=== PATIENT | female | born 1990 | race Caucasian/White ===

== ENCOUNTER 2016-11-06 20:14 | Emergency (ER) | payer OTHER ==
[2016-11-06 20:21] VITALS: BP 127/72; PULSE 62; RESP 16; TEMP 97.6
--- NOTE | 2016-11-06 20:41 | ED ---
General Adult HPI - General Chief complaint: Extremity Injury, Lower Stated complaint: foot pain Time Seen by Provider: 11/06/16 20:29 Source: patient, RN notes reviewed Mode of arrival: ambulatory Limitations: no limitations - History of Present Illness Initial comments: This is a 26-year-old female presents with right foot pain after running yesterday. Patient states by the end of last night she noticed some pain in the lateral aspect of the right foot with mild erythema. Patient states she is a history of hairline fracture of the foot and was concerned. Patient denies rolling her ankle. Patient states she went to work today but went home early because it hurts to walk on the right foot. Patient doesn't have pain when she is resting the foot. Patient states it only hurts when she bears weight on the foot. Patient Denies any numbness/weakness or tingling. Patient denies any chance of being .Patient denies any recent fever, chills, shortness breath, chest pain, abdominal pain, nausea/vomiting/diarrhea, back pain, hematuria, headache, or visual changes, or any other complaints. - Related Data Home Medications Medication Instructions Recorded Confirmed Acetaminophen Tab [Tylenol] 1,000 mg PO Q6H PRN 05/08/16 11/06/16 Aspirin/Acetaminophen/Caffeine 2 tab PO BID PRN 05/08/16 11/06/16 [Excedrin Migraine Caplet] Previous Rx's Medication Instructions Recorded Potassium Chloride ER [K-Dur 20] 20 meq PO DAILY #7 tab 05/09/16 Allergies Allergy/AdvReac Type Severity Reaction Status Date / Time No Known Allergies Allergy Verified 11/06/16 20:20 Review of Systems ROS Statement: Those systems with pertinent positive or pertinent negative responses have been documented in the HPI. ROS Other: All systems not noted in ROS Statement are negative. Past Medical History Past Medical History: No Reported History Additional Past Medical History / Comment(s): migraines History of Any Multi-Drug Resistant Organisms: None Reported Past Surgical History: No Surgical Hx Reported Past Anesthesia/Blood Transfusion Reactions: No Reported Reaction Past Psychological History: No Psychological Hx Reported Smoking Status: Former smoker Past Alcohol Use History: None Reported, Rare Additional Past Alcohol Use History / Comment(s): Quit 09/2013 Past Drug Use History: None Reported General Exam - General Exam Comments Initial Comments: General: The patient is awake and alert, in no distress, and does not appear acutely ill. Neck: The neck is supple, there is no tenderness or JVD. Cardiovascular: There is a regular rate and rhythm. No murmur, rub or gallop is appreciated. Respiratory: Lungs are clear to auscultation, respirations are non-labored, breath sounds are equal. No wheezes, stridor, rales, or rhonchi. Musculoskeletal: There is tenderness to palpation over the lateral aspect of the right foot with some mild erythema to this area as well. There is no swelling or ecchymosis. Full range of motion, strength 5/5 and Sensation intact. Posterior tibial and dorsalis pedis pulses are 2+ bilaterally. Capillary refill is normal at less than 2 seconds. Neurological: A&O x 3. CN II-XII intact, There are no obvious motor or sensory deficits. Coordination appears grossly intact. Speech is normal. Skin: Skin is warm and dry and no rashes or lesions are noted. Psychiatric: Normal mood and affect. Limitations: no limitations Course Vital Signs 11/06/16 20:15 Temperature 97.6 F Pulse Rate 62 Respiratory 16 Rate Blood Pressure 127/72 O2 Sat by Pulse 99 Oximetry Medical Decision Making - Medical Decision Making This is a 26 review the patient's right foot pain. On physical exam There is tenderness to palpation over the lateral aspect of the right foot with some mild erythema to this area as well. There is no swelling or ecchymosis. Full range of motion, strength 5/5 and Sensation intact. Posterior tibial and dorsalis pedis pulses are 2+ bilaterally. Capillary refill is normal at less than 2 seconds. An x-ray of the right foot was done and reviewed showing:Negative right foot exam. Dr. Eller.I discussed results with patient. I discussed the possibility for stress fracture. I discussed that patient may need a repeat x- ray in 7-10 days if pain is persisting. I discussed in the meantime rest, ice, elevate and use Ruddy wrap for compression mother walking. I discussed weightbearing as tolerated but to avoid high impact activity such as running. I discussed supportive shoes. Discussed return parameters. Discussed that patient should follow up with PCP in one to 2 days or return to the [facility] for any worsening symptoms or for any further concerns. Patient was receptive to this plan and patient will be discharged home. I discussed this case with attending physician Dr. Ruiz who agrees the plan as stated above. Disposition Clinical Impression: Right foot pain Disposition: HOME SELF-CARE Condition: Good Instructions: Foot Sprain (ED) Additional Instructions: Rest, ice, elevate and use Ruddy wrap for compression. Please use Tylenol and/or Motrin as needed for any pain. Weightbearing as tolerated. Please avoid high impact activities such as running until pain subsides. If pain persists past 7- 10 days you may need a repeat x-ray to rule out occult fracture. Please follow- up with family doctor in the next 2 days of symptoms have not improved. Please return to emergency room if the symptoms increase or worsen or for any other concerns. Time of Disposition: 21:10
--- NOTE | 2016-11-06 20:58 | XR ---
EXAMINATION TYPE: XR foot complete RT DATE OF EXAM: 11/06/2016 8:54 PM COMPARISON: NONE HISTORY: Foot pain TECHNIQUE: 3 views FINDINGS: I see no fracture nor dislocation. Joint spaces are normal. There are no erosions. IMPRESSION: Negative right foot exam.
== END 2016-11-06 21:21 | disposition home or self-care (01) ==
LOC: EC 20:14
DX: M79.671 Pain in right foot (principal); Z87.891 Personal history of nicotine dependence; Y93.02 Activity, running
CPT/HCPCS: 99283

== ENCOUNTER → 2017-12-26 | Outpatient (CLI) | payer OTHER ==
[2017-12-26 14:35] LABS: Basophils % (A) 1 %; Eosinophils # (A) 0.1 k/uL (0-0.7); Eosinophils % (A) 2 %; HCT 39.2 % (34.0-46.0); HGB 13.3 gm/dL (11.4-16.0); Lymphocytes # (A) 2.3 k/uL (1.0-4.8); Lymphocytes % (A) 30 %; MCH 29.4 pg (25.0-35.0); MCHC 33.9 g/dL (31.0-37.0); MCV 86.6 fL (80.0-100.0); Mean Platelet Volume 8.1; Monocytes # (A) 0.3 k/uL (0-1.0); Monocytes % (A) 3 %; Neutrophils # (A) 4.9 k/uL (1.3-7.7); Neutrophils % (A) 63 %; Platelet Count 261 k/uL (150-450); RBC 4.53 m/uL (3.80-5.40); RDW 12.3 % (11.5-15.5); WBC 7.7 k/uL (3.8-10.6)
== END | disposition home or self-care (01) ==
LOC: LABPAT 14:08
PROVIDERS: ATTEND Obstetrics & Gynecology
DX: Z01.812 Encounter for preprocedural laboratory examination (principal)
CPT/HCPCS: 36415; 85025

== ENCOUNTER 2018-01-03 06:50 | Day surgery (SDC) | payer OTHER ==
[2017-12-31 15:07] VITALS: BMI 25.6
--- NOTE | 2018-01-01 16:28 | P.HPOB ---
History of Present Illness H&P Date: 01/01/18 Chief Complaint: FAmily Planning 27 year old presents for laparoscopic tubal ligation. Review of Systems All systems: negative Constitutional: Denies chills, Denies fever Eyes: denies blurred vision, denies pain Ears, nose, mouth and throat: Denies headache, Denies sore throat Cardiovascular: Denies chest pain, Denies shortness of breath Respiratory: Denies cough Gastrointestinal: Denies abdominal pain, Denies diarrhea, Denies nausea, Denies vomiting Genitourinary: Denies dysuria, Denies hematuria Musculoskeletal: Denies myalgias Integumentary: Denies pruritus, Denies rash Neurological: Denies numbness, Denies weakness Psychiatric: Denies anxiety, Denies depression Endocrine: Denies fatigue, Denies weight change Past Medical History Past Medical History: No Reported History Additional Past Medical History / Comment(s): Migraines. JUST FINISHED PO AB D/ T TOOTH PULLED. History of Any Multi-Drug Resistant Organisms: None Reported Past Surgical History: No Surgical Hx Reported Additional Past Surgical History / Comment(s): WISDOM TEETH Past Anesthesia/Blood Transfusion Reactions: No Reported Reaction Past Psychological History: No Psychological Hx Reported Smoking Status: Current some day smoker - Past Family History Mother Family Medical History: No Reported History Medications and Allergies Home Medications Medication Instructions Recorded Confirmed Type Aspirin/Acetaminophen/Caffeine 2 tab PO BID PRN 05/08/16 12/31/17 History [Excedrin Migraine Caplet] Allergies Allergy/AdvReac Type Severity Reaction Status Date / Time No Known Allergies Allergy Verified 12/31/17 14:46 Exam Osteopathic Statement: *. No significant issues noted on an osteopathic structural exam other than those noted in the History and Physical/Consult. HEart: RRR Lungs: CTAB Abdomen: soft, nontender Extremeties: neg aneudy's Assessment and Plan (1) Family planning Status: Acute Code(s): Z30.09 - ENCOUNTER FOR OTH GENERAL CNSL AND ADVICE ON CONTRACEPTION SNOMED Code(s): 494538592 Plan: 1. laparoscopic tubal ligation
[~2018-01-03 06:50] MED LIST: DEXAMETHASONE SOD PHOSPHATE 10 MG/ML 1 ML VIAL IV ONE; LIDOCAINE 1% 20 ML VIAL (10MG/ML) FOR IV START INTRADERMA PRN; MIDAZOLAM 2 MG/2 ML VIAL IV PRN; ONDANSETRON ODT 4 MG TAB PO ONE; Pre Op ABX Message 1 EACH MISC MISCELLANE ONE; SCOPOLAMINE 1.5MG/72HR PATCH TRANSDERM ONE
[2018-01-03 07:32] VITALS: TEMP 97.8
[2018-01-03] MEDS: LACTATED RINGERS 1,000 ML IV SCH ×2 (07:35→09:48)
[2018-01-03] MEDS ORDERED: PROPOFOL 10 MG/ML 20 ML VIAL IV ONE (08:07)
[2018-01-03] MEDS ORDERED: ROCURONIUM BROMIDE 10 MG/ML 10 ML VIAL IV ONE (08:07)
[2018-01-03] MEDS ORDERED: SUCCINYLCHOLINE CHLORIDE 100 MG/5 ML SYR IV ONE (08:07)
[2018-01-03] MEDS ORDERED: KETOROLAC 30 MG/ML 1 ML VIAL ONE (08:07)
[2018-01-03] MEDS ORDERED: fentaNYL (PF) 50 MCG/ML 2 ML AMP ONE (08:07)
[2018-01-03] MEDS ORDERED: LIDOCAINE 1% INJ 10MG/ML (20 ML MDV) ONE (08:07)
[2018-01-03] MEDS ORDERED: GLYCOPYRROLATE 0.2 MG/ML 2 ML VIAL ONE (08:07)
[2018-01-03] MEDS ORDERED: MIDAZOLAM 2 MG/2 ML VIAL ONE (08:07)
[2018-01-03] MEDS ORDERED: NEOSTIGMINE 1 MG/ML 10 ML VIAL ONE (08:07)
[2018-01-03] MEDS ORDERED: BUPIVACAINE (PF) 0.25% 30 ML VIAL SQ ONE ×2 (08:28)
--- NOTE | 2018-01-03 08:48 | P.OP ---
Date of Procedure: 01/03/18 Preoperative Diagnosis: 1. Family Planning Postoperative Diagnosis: 1. Family Planning Procedure(s) Performed: Laparoscopic tubal ligation Anesthesia: CLAUDETTE Surgeon: Tiara Wren Estimated Blood Loss (ml): 5 IV fluids (ml): 700 Urine output (ml): 20 Pathology: none sent Condition: stable Disposition: floor Operative Findings: Normal uterus, tubes, ovaries Description of Procedure: Patient was taken to the operating room where general anesthesia was obtained without difficulty. She was prepped and draped in normal sterile fashion in the dorsal lithotomy position, legs placed in the Matt stirrups. Bladder drained of all urine. Wedron speculum placed in the vagina and the anterior lip the cervix was grasped with single-tooth tenaculum. The uterus is sounded to 8 cm and the kroner manipulator was placed. Attention was then turned to the abdomen and gloves were changed. A 10 mm infraumbilical incision was made the scalpel and 10 mm optical trocar was placed under direct visualization. A 5 mm suprapubic Incision was made and a 5 mm optical trocar was placed under direct visualization. Survey of the pelvis revealed normal uterus tubes and ovaries. The left fallopian tube was grasped with a Kleppinger and fulgurated 2 -3 cm on this side in the ampullar portion. The right fallopian tube was grasped with a Kleppinger and fulgurated 2-3 cm in the ampullar portion. All instruments were then removed from the abdomen and vagina. The 10 mm infraumbilical incision was closed with 0 Vicryl and the fascial layer and then 4-0 Vicryl in a subcuticular fashion. The 5 mm incision was closed with 4-0 Vicryl in a subcuticular fashion. Patient tolerated procedure well, sponge and instrument counts correct 2 and she was taken to recovery room in stable condition.
[2018-01-03] MEDS: MORPHINE SULFATE 4 MG/0.8 ML SYRINGE (INJ) IV PRN ×2 (09:17→09:26)
[2018-01-03 09:19] VITALS: RESP 16
[2018-01-03 10:14] VITALS: BP 126/83; PULSE 67
[2018-01-03] MEDS ORDERED: Acetaminophen-Codeine 300-30mg TAB PO ONE (10:16)
== END 2018-01-03 10:41 | disposition home or self-care (01) ==
LOC: OR 06:50
PROVIDERS: ATTEND Obstetrics & Gynecology
DX: Z30.2 Encounter for sterilization (principal); F17.200 Nicotine dependence, unspecified, uncomplicated
CPT/HCPCS: 81025; 58670; J2250; J1100; J2710; J2001; J3010; J1885; J0330; J2704; J2270

== ENCOUNTER 2023-10-30 09:43 | Emergency (ER) | payer OTHER ==
[2023-10-30] MEDS: KETOROLAC 15 MG/ML 1 ML VIAL IVP STA (10:19)
[2023-10-30] MEDS: SODIUM CHLORIDE 0.9% 1,000 ML IV STA (10:19)
--- NOTE | 2023-10-30 10:20 | ED ---
Skin/Abscess/FB HPI - General Chief complaint: Skin/Abscess/Foreign Body Stated complaint: Mass in breast Time Seen by Provider: 10/30/23 09:59 Source: patient, RN notes reviewed Mode of arrival: ambulatory Limitations: no limitations - History of Present Illness Initial comments: This is a 33-year-old female who presents to the emergency department for concerns of a left breast mass. States that she noted a lump in the center of her left breast about a month ago. She had a mammogram and ultrasound that were negative. However, states that this continues to be enlarging. She has also noticed increasing pain and redness. She went to urgent care 4 days ago and was started on doxycycline. However, feels that she is continuing to get worse. Denies any fevers or chills. States that she would like blood work and a repeat ultrasound. - Related Data Home Medications Medication Instructions Recorded Confirmed Aspirin/Acetaminophen/Caffeine 2 tab PO BID PRN 05/08/16 12/31/17 [Excedrin Migraine Caplet] Previous Rx's Medication Instructions Recorded Acetaminophen-Codeine 300-30mg 2 tab PO Q6H PRN #30 tablet 01/03/18 [Tylenol #3] Ibuprofen [Motrin] 600 mg PO Q6HR PRN #30 tab 01/03/18 Allergies Allergy/AdvReac Type Severity Reaction Status Date / Time No Known Allergies Allergy Verified 10/30/23 09:47 Review of Systems ROS Statement: Those systems with pertinent positive or pertinent negative responses have been documented in the HPI. ROS Other: All systems not noted in ROS Statement are negative. Past Medical History Past Medical History: No Reported History Additional Past Medical History / Comment(s): migraines History of Any Multi-Drug Resistant Organisms: None Reported Past Surgical History: No Surgical Hx Reported Past Anesthesia/Blood Transfusion Reactions: No Reported Reaction Past Psychological History: No Psychological Hx Reported Smoking Status: Never smoker Past Alcohol Use History: None Reported, Rare Past Drug Use History: None Reported General Exam Limitations: no limitations General appearance: alert, in no apparent distress Head exam: Present: atraumatic, normocephalic, normal inspection Respiratory exam: Present: normal lung sounds bilaterally. Absent: respiratory distress, wheezes, rales, rhonchi, stridor Cardiovascular Exam: Present: regular rate, normal rhythm, normal heart sounds. Absent: systolic murmur, diastolic murmur, rubs, gallop, clicks Neurological exam: Present: alert, oriented X3, CN II-XII intact Psychiatric exam: Present: normal affect Skin exam: Present: other (Firm tender lump posteior to the nipple in the left breast.) Course Vital Signs 10/30/23 10/30/23 09:44 13:10 Temperature 98.2 F 98.3 F Pulse Rate 75 80 Respiratory 18 12 Rate Blood Pressure 112/75 137/88 O2 Sat by Pulse 99 100 Oximetry Medical Decision Making - Medical Decision Making This is a 33 year old female who presents to the emergency department for concerns of a breast lump. Was pt. sent in by a medical professional or institution? @ -No Did you speak to anyone other than the patient for history? @ -No Did you review nursing and triage notes? @ -Yes, and I agree, it is accurate with regards to the patient's symptoms. Were old charts reviewed? @ -No Differential Diagnosis? @ -Differential Breast Lump: Abscess, cancer, mastitis, fibroadenoma, this is not meant to be an all- inclusive list. EKG interpreted by me (3pts min.)? @ -Not obtained X-rays interpreted by me (1pt min.)? @ -Not obtained CT interpreted by me (1pt min.)? @ -Not obtained U/S interpreted by me (1pt. min.)? @ -US of the breast obtained. My interpretation identifies a masslike area behind the nipple. What testing was considered but not performed? (CT, X-rays, U/S, labs)? Why? @ -None What meds were considered but not given? Why? @ -None Did you discuss the management of the patient with other professionals? @ -No Did you reconcile home meds? @ -No Was smoking cessation discussed for >3mins.? @ -No Was critical care preformed (if so, how long)? @ -No Were there social determinants of health that impacted care today? How? (Homelessness, low income, unemployed, alcoholism, drug addiction, transportation, low edu. Level, literacy, decrease access to med. care, retirement, rehab)? @ -No Was there de-escalation of care discussed even if they declined? (Discuss DNR or withdrawal of care, Hospice)? @ -No What co-morbidities impacted this encounter? (DM, HTN, Smoking, COPD, CAD, Cancer, CVA, Hep., AIDS, mental health diagnosis, sleep apnea, morbid obesity)? @ -None Was patient admitted / discharged? @ -Discharged. Lab work obtained and found to be unremarkable, including no evidence of leukocytosis or elevated inflammatory markers. US of the left breast obtained. This demonstrates a heterogeneous hypoechoic masslike area behind the nipple. This contains internal and surrounding vascularity. Radiology reviewed the imaging that the patient had done last month, including an ultrasound and mammogram, and this was not evident on that imaging. Radiology advised a new mammogram and possible biopsy. Findings reviewed with the patient. She was given information to follow-up with Dr. Ely for further evaluation. However, I also advised she call her PCP and request a mammogram be ordered as soon as possible and ask if an official referral needs to be made to Dr. Ely, as the pathology of this masslike area on [facility] is not clear and further management should not be delayed. Patient given the option of whether or not to continue with the doxycycline, however I did not see a need to begin a new or alternative antibiotic at this time. Undiagnosed new problem with uncertain prognosis? @ -None Drug Therapy requiring intensive monitoring for toxicity (Heparin, Nitro, Insulin, Cardizem)? @ -None Were any procedures done? @ -None Diagnosis/symptom? @ -Breast mass Acute, or Chronic, or Acute on Chronic? @ -Acute Uncomplicated (without systemic symptoms) or Complicated (systemic symptoms)? @ -Uncomplicated Side effects of treatment? @ -None Exacerbation, Progression, or Severe Exacerbation] @ -Not applicable Poses a threat to life or bodily function? @ -This will depend on the cause Return precautions reviewed in depth, the patient is instructed to return to the emergency department with any new, worsening, or concerning symptoms. Patient verbalized understanding. This case was discussed in detail with the attending ED physician, Dr. Kate. Presentation, findings, and treatment plan discussed in detail as well. - Lab Data Result diagrams: 10/30/23 10:22 10/30/23 10:22 Lab Results 10/30/23 10/30/23 10/30/23 Range/Units 10:22 10:22 10:22 WBC 7.1 (3.8-10.6) k/uL RBC 4.47 (3.80-5.40) m/uL Hgb 13.2 (11.4-16.0) gm/dL Hct 38.5 (34.0-46.0) % MCV 86.0 (80.0-100.0) fL MCH 29.6 (25.0-35.0) pg MCHC 34.4 (31.0-37.0) g/dL RDW 12.8 (11.5-15.5) % Plt Count 235 (150-450) k/uL MPV 9.1 Neutrophils % 62 % Lymphocytes % 30 % Monocytes % 5 % Eosinophils % 1 % Basophils % 0 % Neutrophils # 4.4 (1.3-7.7) k/uL Lymphocytes # 2.1 (1.0-4.8) k/uL Monocytes # 0.3 (0-1.0) k/uL Eosinophils # 0.1 (0-0.7) k/uL Basophils # 0.0 (0-0.2) k/uL ESR 13 (0-20) mm/Hr Sodium 142 (137-145) mmol/L Potassium 4.2 (3.5-5.1) mmol/L Chloride 109 H (98-107) mmol/L Carbon Dioxide 22 (22-30) mmol/L Anion Gap 11 mmol/L BUN 15 (7-17) mg/dL Creatinine 0.62 (0.52-1.04) mg/dL Est GFR (CKD-EPI)AfAm >90 (>60 ml/min/1.73 sqM) Est GFR (CKD-EPI)NonAf >90 (>60 ml/min/1.73 sqM) Glucose 80 (74-99) mg/dL Plasma Lactic Acid Mukund 1.3 (0.7-2.0) mmol/L Calcium 9.5 (8.4-10.2) mg/dL Total Bilirubin 0.6 (0.2-1.3) mg/dL AST 30 (14-36) U/L ALT 26 (4-34) U/L Alkaline Phosphatase 73 (38-126) U/L C-Reactive Protein 0.6 (<1.0) mg/dL Total Protein 7.0 (6.3-8.2) g/dL Albumin 4.4 (3.5-5.0) g/dL - Radiology Data Radiology results: report reviewed, image reviewed Disposition Clinical Impression: Breast lump in female Disposition: HOME SELF-CARE Additional Instructions: Return to the emergency department with any new, worsening, or concerning symptoms. Alternate with Ibuprofen and Tylenol as needed for pain relief. Call your primary care providers's office today. Let them know that you were seen in the emergency department and had an abnormal US of your breast and you need a mammogram, and see if they will order that for you. Contact the breast specialist listed below for a follow up appointment. See if they will see you as an ER follow up patient. If not, contact your doctor's office regarding this referral as well. Is patient prescribed a controlled substance at d/c from ED?: No Referrals: Jamila Diaz MD [Primary Care Provider] - 1-2 days Anastacia Ely MD [STAFF PHYSICIAN] - 1-2 days Time of Disposition: 13:02
[2023-10-30 10:39] LABS: Basophils % (A) 0 %; Eosinophils # (A) 0.1 k/uL (0-0.7); Eosinophils % (A) 1 %; HCT 38.5 % (34.0-46.0); HGB 13.2 gm/dL (11.4-16.0); Lymphocytes # (A) 2.1 k/uL (1.0-4.8); Lymphocytes % (A) 30 %; MCH 29.6 pg (25.0-35.0); MCHC 34.4 g/dL (31.0-37.0); Mean Platelet Volume 9.1; Monocytes # (A) 0.3 k/uL (0-1.0); Monocytes % (A) 5 %; Neutrophils # (A) 4.4 k/uL (1.3-7.7); Neutrophils % (A) 62 %; Platelet Count 235 k/uL (150-450); RBC 4.47 m/uL (3.80-5.40); RDW 12.8 % (11.5-15.5); WBC 7.1 k/uL (3.8-10.6)
[2023-10-30 11:05] LABS: ALT 26 U/L (4-34); AST 30 U/L (14-36); African American GFR (CKD) >90 (>60 ml/min/1.73 sqM); Albumin 4.4 g/dL (3.5-5.0); Alkaline Phosphatase 73 U/L (38-126); Anion Gap 11 mmol/L; Blood Urea Nitrogen 15 mg/dL (7-17); C Reactive Protein 0.6 mg/dL (<1.0); Calcium 9.5 mg/dL (8.4-10.2); Carbon Dioxide 22 mmol/L (22-30); Chloride 109 mmol/L (98-107); Glucose 80 mg/dL (74-99); Non-African American GFR(CKD) >90 (>60 ml/min/1.73 sqM); Potassium 4.2 mmol/L (3.5-5.1); Sodium 142 mmol/L (137-145); Total Bilirubin 0.6 mg/dL (0.2-1.3)
--- NOTE | 2023-10-30 12:41 | USB ---
Reason for Exam: Clinical finding. Technique: Method: Targeted. Findings: The periareolar of the left breast, the axilla of the left breast and the retroareolar of the left breast were scanned. Targeted subareolar and periareolar left breast ultrasound. Behind the nipple, there is a heterogeneous hypoechoic masslike area measuring 2.0 x 1.9 x 1.4 cm containing internal and some surrounding vascularity. We have reviewed patient's outside ultrasound of 09/24/2023 where no finding was present in this location. Given the lack of improvement following 4 days of antibiotics, tissue sampling may be needed. Recommend dedicated workup with new mammogram in outpatient diagnostic clinic. Nonspecific couple prominent lymph nodes in the axilla both with thickened cortex measuring up to 4 mm. Nodes measures up to 1.5 x 1.4 x 1.2 cm. No other solid or cystic lesion. Overall Assessment: Incomplete: need additional imaging evaluation, BI-RAD 0 Management: Diagnostic Mammogram of the left breast. In outpatient diagnostic clinic. In preparation for possible subareolar biopsy given lack of improvement after 4 days of antibiotics. The axilla should also be assessed at the time of biopsy for potential second site biopsy. Electronically signed and approved by: Santos Gold M.D. Radiologist
[2023-10-30 13:45] VITALS: BP 137/88; PULSE 80; RESP 12; TEMP 98.3
[2023-10-30 16:55] LABS: Erythrocyte Sedimentation Rate 13 mm/Hr (0-20)
== END 2023-10-30 13:31 | disposition home or self-care (01) ==
LOC: EC 09:43
DX: N63.20 Unspecified lump in the left breast, unspecified quadrant (principal)
CPT/HCPCS: 36415; 80053; 85652; 83605; 85025; 86140; 76642; 99284; 96374; 96361; J1885

== ENCOUNTER → 2023-11-05 | Outpatient (CLI) | payer OTHER ==
--- NOTE | 2023-11-05 13:11 | MM ---
Reason for Exam: Clinical finding. Last screening mammogram was performed 1 month(s) ago. Patient History: Menarche at age 14. First Full-Term at age 18. Hormonal Contraceptives for 6 years from age 16 until age 22. Prior Study Comparison: 10/04/2023 Bilateral Screening Mammogram, [facility]. Tissue Density: Left: The breast tissue is heterogeneously dense. This may lower the sensitivity of mammography. Findings: Analyzed By CAD. Focal area of asymmetry within the upper outer left breast appears to disperse unilateral compression view. Compression craniocaudal tomographic images are without a focal irregular density. Finding may be some focal asymmetry. There is increased density within the subareolar left breast from comparison.. A suspicious underlying spiculated or lobular mass by mammography however is not evident. Evaluation with ultrasound is recommended. Overall Assessment: Incomplete: need additional imaging evaluation, BI-RAD 0 Management: Diagnostic Breast Ultrasound of the left breast. A negative mammogram report should not preclude additional follow up of suspicious palpable abnormalities. Patient should continue monthly self breast exam. A clinical breast exam by your physician is recommended on an annual basis and results should be correlated with mammographic findings. Electronically signed and approved by: Tomi Phipps D.O. Radiologis
--- NOTE | 2023-11-05 13:18 | USB ---
Reason for Exam: Clinical finding. Patient History: Menarche at age 14. First Full-Term at age 18. Hormonal Contraceptives for 6 years from age 16 until age 22. Technique: Method: Targeted. Prior Study Comparison: 10/04/2023 Bilateral Screening Mammogram, [facility]. Findings: The upper outer quadrant of the left breast, the axilla of the left breast and the retroareolar of the left breast were scanned. 1. In the subareolar breast there is a oval 1.8 x 0.7 cm area posterior to the left nipple. This is smaller than the previous rounded density measuring 2.0 x 1.4 cm. Short-term follow-up in 3 months is recommended to document resolving findings. 2. Note is made of prominent lymph nodes in the left axillary tail. Transverse dimension measures up to 1.0 cm. Cortex appears to be at the upper or normal. Additional smaller lymph nodes may be present. Patient denies recent infection or recent vaccinations. Short-term follow-up is recommended. Overall Assessment: Probably benign, BI-RAD 3 Management: Diagnostic Mammogram of the left breast in 3 months. Diagnostic Breast Ultrasound of the left breast in 3 months. Surgical Consultation of the left breast. A clinical breast exam by your physician is recommended on an annual basis and results should be correlated with mammographic findings. This exam should not preclude additional follow-up of suspicious palpable abnormalities. Results were given to the patient verbally at the time of exam. Electronically signed and approved by: Tomi Phipps D.O. Radiologis
== END | disposition home or self-care (01) ==
LOC: RADMAMWWP 08:34
PROVIDERS: ATTEND Family Medicine
DX: N63.20 Unspecified lump in the left breast, unspecified quadrant (principal); R92.332 Mammographic heterogeneous density, left breast; R59.0 Localized enlarged lymph nodes
CPT/HCPCS: 77065; 76642; G0279; 77061

== ENCOUNTER → 2023-11-30 | Outpatient (CLI) | payer BC ==
[2023-11-30 10:44] VITALS: BP 127/83; PULSE 59; RESP 16; TEMP 98.3
--- NOTE | 2023-11-30 10:53 | P.GSHP ---
History of Present Illness H&P Date: 11/30/23 Chief Complaint: abnormal left breast ultrasound Nhi is a 33 year old female seen in consultation for Dr. Huynh regarding an abnormal left breast ultrasound. She ahd a left breast mammogrma and ultrasound done on 11-05-23. The mammogram was BIRAD 0 adn an ultrasound was done. This showed a 1.8 cm subareolar oval area and follow up in 3 months recommended. This also showed prominent lymph nodes in the left axillary tail, follow up in three months. The patient felt a mass in her left breast several months ago, it was tender and inflamed. She did not have any trauma. It is posterior to the nipple. The pain and redness have resolved, but the mass remains. She did not have any nipple discharge. She has not had any trauma or infection. She has never had any surgery on her breast. caffeine: used to drink an energy drink daily/ now several times a week nicotine: stopped in July, used to vape all day chocolate: occasional Family History: paternal second cousin: breast and cervical cancer paternal great aunt: cancer ? type Hormonal History: menarche: 14 , breast fed: yes, age at first : 20 periods regular hormones: none BCP: none, used them for about 6 years Surgical History: tubaligation Medical History: none Social History: nicotine: as above alcohol: none drugs: none - Constitutional Constitutional: Denies chills, Denies fever - EENT Eyes: bilateral blurred vision, denies pain Ears: deny: decreased hearing, tinnitus Ears, nose, mouth and throat: Reports headache - Breasts Breasts: bilateral: as per HPI - Cardiovascular Cardiovascular: Denies chest pain, Denies shortness of breath - Respiratory Respiratory: Denies cough, Denies 7 - Gastrointestinal Gastrointestinal: Denies abdominal pain, Denies diarrhea, Denies nausea, Denies vomiting - Genitourinary (Female) Genitourinary: Denies dysuria, Denies hematuria - Menstruation Menstruation: Reports period normal - Musculoskeletal Musculoskeletal: Denies myalgias - Integumentary Integumentary: Denies pruritus, Denies rash - Neurological Neurological: Denies numbness, Denies weakness - Psychiatric Psychiatric: Denies anxiety, Denies depression - Endocrine Endocrine: Denies fatigue, Denies weight change - Hematologic/Lymphatic Comment: none - Allergic/Immunologic Allergic/Immunologic: Reports seasonal allergies Past Medical History Past Medical History: No Reported History Additional Past Medical History / Comment(s): migraines History of Any Multi-Drug Resistant Organisms: None Reported Past Surgical History: No Surgical Hx Reported Past Anesthesia/Blood Transfusion Reactions: No Reported Reaction Past Psychological History: No Psychological Hx Reported Smoking Status: Never smoker Past Alcohol Use History: None Reported, Rare Additional Past Alcohol Use History / Comment(s): Quit 09/2013 Past Drug Use History: None Reported Medications and Allergies Home Medications Medication Instructions Recorded Confirmed Type Aspirin/Acetaminophen/Caffeine 2 tab PO BID PRN 05/08/16 11/30/23 History [Excedrin Migraine Caplet] Ibuprofen [Motrin] 600 mg PO Q6HR PRN #30 tab 01/03/18 11/30/23 Rx Allergies Allergy/AdvReac Type Severity Reaction Status Date / Time No Known Allergies Allergy Verified 11/30/23 10:22 Surgical - Exam Vital Signs Temp Pulse Resp BP Pulse Ox 98.3 F 59 L 16 127/83 99 11/30/23 10:23 11/30/23 10:23 11/30/23 10:23 11/30/23 10:23 11/30/23 10:23 - General no distress - Eyes normal ocular movement - ENT no hearing loss - Neck trachea midline - Respiratory normal respiratory effort, clear to auscultation - Cardiovascular Rhythm: regular Heart Sounds: normal: S1, S2 - Abdomen Abdomen: soft, non tender, no guarding, no rigid, no rebound - Integumentary normal turgor - Neurologic no disoriented, no combative - Musculoskeletal normal gait - Psychiatric oriented to time, oriented to person, oriented to place, speech is normal, memory intact Breast Exam: BRA: sports medium inspection: Tattoos over the chest and shoulders/bilateral grade 2 ptosis Palpation: Right breast: Multi positional exam fibrocystic changes no dominant masses or nodules of concern Right axilla: No adenopathy of concern Left breast: Multi positional exam fibrocystic changes, in the periareolar area in the upper inner aspect there is some increased nodularity which is believed to correspond with that which was seen on ultrasound otherwise no dominant masses or nodules of concern Left axilla: No adenopathy of concern Results Left breast mammogram and ultrasound results reviewed Assessment and Plan Assessment: Impression: Left breast subareolar nodularity/left breast axillary adenopathy Fibrocystic breast changes Plan: Ultrasound-guided core biopsy left breast nodule and if any concern left axillary lymph nodes Patient to follow-up after these are done Risk of the procedure discussed with the patient and her . Risk include but are not limited to bleeding, infection, reaction to the anesthetic. If the tissue were felt to be discordant then further tissue acquisition may be necessary. They understand and wish to proceed. CC: Dr. Howard
== END | disposition home or self-care (01) ==
LOC: WWCWWP 09:23
PROVIDERS: ATTEND Surgery
DX: N60.12 Diffuse cystic mastopathy of left breast (principal); N63.42 Unspecified lump in left breast, subareolar; Z87.891 Personal history of nicotine dependence

== ENCOUNTER → 2023-12-19 | Outpatient (CLI) | payer BC ==
--- NOTE | 2023-12-19 11:33 | P.PN ---
Subjective Progress Note Date: 12/19/23 Principal diagnosis: resolving abscess left breast Janie is a 33 year old female status post an ultrasound core biopsy of the left breast on 01-01-24. Her pathology was severe acute and chronic mastitis with granulation tissue She is nto complaining of any fever or chills. The area of nodularity has not changed since the biopsy and she tolerated the biopsy without difficulty. Objective - Vital Signs Vital signs: Vital Signs Temp 98.2 F 12/19/23 11:25 Pulse 55 L 12/19/23 11:25 Resp 15 12/19/23 11:25 BP 133/83 12/19/23 11:25 Pulse Ox 99 12/19/23 11:25 FiO2 Intake & Output 12/18/23 12/19/23 12/19/23 18:59 06:59 18:59 Weight 70.307 kg - Constitutional General appearance: Present: cooperative - EENT Eyes: Present: EOMI ENT: Present: hearing grossly normal - Neck Neck: Present: normal ROM - Musculoskeletal Musculoskeletal: Present: gait normal - Psychiatric Psychiatric: Present: A&O x's 3, appropriate affect, intact judgment & insight - Additional findings Additional findings: Breast biopsy site Steri-Strips in place clean and dry No evidence of hematoma or infection Assessment and Plan Assessment: Impression: Chronic mastitis with granulation tissue/favored abscess formation/fat necrosis and fibrosis Plan: Repeat left breast ultrasound breast and axilla in 3 months with examination at that time If patient has any concerns she will follow-up sooner CC: Dr. Howard
[2023-12-19 11:39] VITALS: BP 133/83; PULSE 55; RESP 15; TEMP 98.2
== END ==
LOC: WWCWWP 11:00
PROVIDERS: ATTEND Surgery
DX: N61.1 Abscess of the breast and nipple (principal); Z87.891 Personal history of nicotine dependence